=== PATIENT | male | born 1955 | race Caucasian/White ===

== ENCOUNTER 2017-06-18 14:54 | Emergency (ER) | payer MEDICARE, MEDICAID ==
[~2017-06-18] VITALS: Ht 175.3 cm; Wt 69.0 kg
[~2017-06-18 14:54] MED LIST: ALBU18HF2 IH; ALLO100T PO; AMIO200T57 PO; APIX2.5T PO; BUDE10.2 INH; CARV-50 PO; DIGO125T97 PO; DILT180C PO; DOCU100C40 PO; FAMO-1 PO; FURO-149 PO; HYDR-565 PO; MYCO500T PO; NITR0.4T51 SL; ONDA4TAB9 SL; POLY17PO10 PO; ROSU40TA PO; SODI650T29 PO; TAMS0.4C32 PO; UBID1CAP54 PO; VENL150C2 PO
[2017-06-18] MEDS ORDERED: HYDROcodone/acetaminophen 10/325mg tab PO ONE (15:40)
[2017-06-18 16:15] VITALS: BP 112/62
== END 2017-06-18 16:16 | disposition home or self-care (01) ==
LOC: ER 14:54
DX: R07.81 Pleurodynia (principal); I48.91 Unspecified atrial fibrillation; I25.10 Atherosclerotic heart disease of native coronary artery without angina pectoris; I25.2 Old myocardial infarction; J44.9 Chronic obstructive pulmonary disease, unspecified; I12.9 Hypertensive chronic kidney disease with stage 1 through stage 4 chronic kidney disease, or unspecified chronic kidney disease; N18.9 Chronic kidney disease, unspecified; Z95.1 Presence of aortocoronary bypass graft; Z79.899 Other long term (current) drug therapy; Z88.8 Allergy status to other drugs, medicaments and biological substances
CPT/HCPCS: 71046; 99284

== ENCOUNTER 2017-08-21 01:19 | Emergency (ER) | payer MEDICARE, MEDICAID ==
[~2017-08-21] VITALS: Ht 172.7 cm; Wt 56.0 kg
[2017-08-21] MEDS ORDERED: PSEU120T55 PO (02:04)
[2017-08-21] MEDS ORDERED: AZIT250T2 PO (02:04)
[2017-08-21 02:37] LABS: BASOPHILS % (AUTO) 0.2 % (0-1); EOSINOPHILS # (AUTO) 0.1 X10'3 (0-0.9); EOSINOPHILS % (AUTO) 1.8 % (0-6); HEMATOCRIT 36.2 % (42.0-52.0); HEMOGLOBIN 12.1 g/dl (14.0-17.9); LYMPHOCYTES # (AUTO) 0.7 X10'3 (1.1-4.8); LYMPHOCYTES % (AUTO) 13.7 % (21-51); MEAN CORPUSCULAR HEMOGLOBIN 34.3 PG (27.0-31.0); MEAN CORPUSCULAR HGB CONC 33.3 % (33.0-36.5); MEAN CORPUSCULAR VOLUME 103.2 FL (78-98); MEAN PLATELET VOLUME 7.5 FL (7.4-10.4); MONOCYTES # (AUTO) 0.9 X10'3 (0-0.9); MONOCYTES % (AUTO) 19.4 % (2-12); NEUTROPHILS # (AUTO) 3.1 X10'3 (1.8-7.7); NEUTROPHILS % (AUTO) 64.9 % (42-75); PLATELET COUNT 258 X10'3 (140-440); RED BLOOD COUNT 3.51 X10'6 (4.70-6.10); RED CELL DISTRIBUTION WIDTH 20.7 % (11.5-14.5); WHITE BLOOD COUNT 4.8 X10'3 (4.5-11.0)
[2017-08-21 02:52] LABS: ALANINE AMINOTRANSFERASE 20 U/L (12-78); ALBUMIN 3.5 G/DL (3.4-5.0); ALKALINE PHOSPHATASE 98 IU/L (46-116); ANION GAP 17 (8-16); ASPARTATE AMINO TRANSFERASE 18 U/L (10-37); BILIRUBIN,TOTAL 0.9 MG/DL (0.1-1.0); BLOOD UREA NITROGEN 66 MG/DL (7-18); BUN/CREATININE RATIO 8.7 (5.4-32.0); CALCIUM 8.5 MG/DL (8.5-10.1); CHLORIDE 98 MMOL/L (99-107); CREATININE 7.55 MG/DL (0.60-1.10); GLUCOSE 104 MG/DL (70-104); LIPASE < 50 U/L (73-393); MAGNESIUM 2.3 MG/DL (1.5-2.4); POTASSIUM 5.8 MMOL/L (3.5-5.1); SODIUM 137 MMOL/L (135-145); TOTAL CARBON DIOXIDE 22.2 MMOL/L (24-32); TOTAL PROTEIN 7.1 G/DL (6.4-8.2); eGFR 7 ML/MIN
[2017-08-21 03:29] LABS: NUCLEATED RED BLOOD CELLS 1 /100WBC (0-0); PLATELET ESTIMATE NORMAL; TOTAL CELLS COUNTED 100
[2017-08-21 03:30] LABS: ANISOCYTOSIS 3+; ELLIPTOCYTES 1+; POIKILOCYTOSIS FEW; POLYCHROMASIA 1+; TEAR DROP CELLS FEW
[2017-08-21 03:31] LABS: LARGE PLATELETS FEW
[2017-08-21 03:34] LABS: TOXIC VACUOLATION FEW
[2017-08-21 03:53] VITALS: BP 125/82
[2017-08-22] MEDS ORDERED: CALC667C5 (20:30)
== END 2017-08-21 04:28 | disposition home or self-care (01) ==
LOC: ER 01:19
DX: R10.9 Unspecified abdominal pain (principal); I12.0 Hypertensive chronic kidney disease with stage 5 chronic kidney disease or end stage renal disease; N18.6 End stage renal disease; Z99.2 Dependence on renal dialysis; I25.10 Atherosclerotic heart disease of native coronary artery without angina pectoris; I25.2 Old myocardial infarction; J44.1 Chronic obstructive pulmonary disease with (acute) exacerbation; I48.91 Unspecified atrial fibrillation; Z98.62 Peripheral vascular angioplasty status; Z90.49 Acquired absence of other specified parts of digestive tract; Z88.6 Allergy status to analgesic agent; Z88.8 Allergy status to other drugs, medicaments and biological substances; Z79.899 Other long term (current) drug therapy
CPT/HCPCS: 36415; 74176; 80053; 83690; 83735; 85025; 99285

== ENCOUNTER 2017-08-22 17:40 | Inpatient (IN) | payer MEDICARE, MEDICAID ==
[~2017-08-22] VITALS: Ht 172.7 cm; Wt 64.1 kg
[2017-08-22 18:22] LABS: BASOPHILS % (AUTO) 0.4 % (0-1); EOSINOPHILS # (AUTO) 0.1 X10'3 (0-0.9); EOSINOPHILS % (AUTO) 1.5 % (0-6); HEMATOCRIT 37.1 % (42.0-52.0); HEMOGLOBIN 12.3 g/dl (14.0-17.9); LYMPHOCYTES # (AUTO) 0.8 X10'3 (1.1-4.8); LYMPHOCYTES % (AUTO) 12.9 % (21-51); MEAN CORPUSCULAR HEMOGLOBIN 34.2 PG (27.0-31.0); MEAN CORPUSCULAR VOLUME 103.7 FL (78-98); MEAN PLATELET VOLUME 7.7 FL (7.4-10.4); MONOCYTES # (AUTO) 1.1 X10'3 (0-0.9); MONOCYTES % (AUTO) 17.8 % (2-12); NEUTROPHILS # (AUTO) 4.1 X10'3 (1.8-7.7); NEUTROPHILS % (AUTO) 67.4 % (42-75); PLATELET COUNT 273 X10'3 (140-440); RED BLOOD COUNT 3.58 X10'6 (4.70-6.10); RED CELL DISTRIBUTION WIDTH 21.1 % (11.5-14.5); WHITE BLOOD COUNT 6.1 X10'3 (4.5-11.0)
[2017-08-22 18:32] LABS: INR 1.2 INR; PROTHROMBIN TIME 12.5 SECONDS (9.0-12.0)
[2017-08-22 18:37] LABS: ALANINE AMINOTRANSFERASE 24 U/L (12-78); ALBUMIN 3.4 G/DL (3.4-5.0); ALBUMIN/GLOBULIN RATIO 0.9 (1.1-1.5); ALKALINE PHOSPHATASE 97 IU/L (46-116); AMYLASE 44 U/L (25-115); ANION GAP 12 (8-16); ASPARTATE AMINO TRANSFERASE 18 U/L (10-37); BILIRUBIN,TOTAL 0.7 MG/DL (0.1-1.0); BLOOD UREA NITROGEN 21 MG/DL (7-18); BUN/CREATININE RATIO 6.1 (5.4-32.0); CALCIUM 8.7 MG/DL (8.5-10.1); CHLORIDE 99 MMOL/L (99-107); CREATININE 3.44 MG/DL (0.60-1.10); GLUCOSE 138 MG/DL (70-104); LIPASE 112 U/L (73-393); POTASSIUM 3.5 MMOL/L (3.5-5.1); SODIUM 142 MMOL/L (135-145); TOTAL CARBON DIOXIDE 31.2 MMOL/L (24-32); eGFR 18 ML/MIN
[2017-08-22] MEDS ORDERED: ondansetron/PF 4mg/2ml inj IV ONE ×2 (20:20→22:45)
[2017-08-22] MEDS ORDERED: CALC667C5 (20:30)
[2017-08-22] MEDS ORDERED: morphine 4 MG/ML inj SYRINge IV ONE ×2 (20:50→22:45)
[2017-08-22] MEDS ORDERED: diphenhydrAMINE 50 mg/ml inj IV PRN (21:20)
[2017-08-22] MEDS ORDERED: acetaminophen 325mg tablet PO PRN (21:20)
[2017-08-22] MEDS ORDERED: non-formulary drug (Budesonide/Formoterol Fumarate (Symbicort 160-4.5 Mcg Inhaler) 2 PUFFS INH PRN (21:30)
[2017-08-22] MEDS ORDERED: non-formulary drug (Albuterol Sulfate (Ventolin Hfa) 2 PUFFS) IH PRN (21:30)
[2017-08-22] MEDS ORDERED: nitroGLYCERIN 0.4mg SUBLingual tab SL PRN (21:30)
[2017-08-23] MEDS: ondansetron/PF 4mg/2ml inj IV PRN ×2 (03:26→18:35)
[2017-08-23] MEDS: HYDROmorphone inj. 0.5 MG/0.5 ML DISP.SYRIN IV PRN ×2 (03:26→18:34)
[2017-08-23] MEDS ORDERED: epoetin 20,000 units/ml inj IV ONE (06:40)
[2017-08-23] MEDS ORDERED: heparin 1,000 units/ml 10ml inj IV ONE (06:40)
[2017-08-23] MEDS ORDERED: LIDOcaine 1% (10mg/ml) 2ml vial SQ ONE (06:40)
[2017-08-23] MEDS ORDERED: heparin 1,000unit/ml 10ml vial 10 ML IV ONE (06:40)
[2017-08-23] MEDS ORDERED: normal saline 1000ml 250 ML IV PRN (06:40)
[2017-08-23] MEDS ORDERED: heparin 1,000 units/ml 10ml inj HE ONE ×2 (06:45)
[2017-08-23 07:09] LABS: BASOPHILS % (AUTO) 0.3 % (0-1); EOSINOPHILS # (AUTO) 0.2 X10'3 (0-0.9); EOSINOPHILS % (AUTO) 3.2 % (0-6); HEMATOCRIT 35.6 % (42.0-52.0); HEMOGLOBIN 11.6 g/dl (14.0-17.9); LYMPHOCYTES # (AUTO) 0.5 X10'3 (1.1-4.8); LYMPHOCYTES % (AUTO) 7.8 % (21-51); MEAN CORPUSCULAR HGB CONC 32.5 % (33.0-36.5); MEAN CORPUSCULAR VOLUME 104.5 FL (78-98); MEAN PLATELET VOLUME 7.7 FL (7.4-10.4); MONOCYTES % (AUTO) 14.6 % (2-12); NEUTROPHILS % (AUTO) 74.1 % (42-75); PLATELET COUNT 212 X10'3 (140-440); RED BLOOD COUNT 3.41 X10'6 (4.70-6.10); RED CELL DISTRIBUTION WIDTH 21.2 % (11.5-14.5); WHITE BLOOD COUNT 6.8 X10'3 (4.5-11.0)
[2017-08-23 07:32] LABS: ALANINE AMINOTRANSFERASE 24 U/L (12-78); ALBUMIN/GLOBULIN RATIO 0.9 (1.1-1.5); ALKALINE PHOSPHATASE 87 IU/L (46-116); ANION GAP 13 (8-16); ASPARTATE AMINO TRANSFERASE 17 U/L (10-37); BILIRUBIN,TOTAL 0.6 MG/DL (0.1-1.0); BLOOD UREA NITROGEN 29 MG/DL (7-18); BUN/CREATININE RATIO 6.7 (5.4-32.0); CALCIUM 8.3 MG/DL (8.5-10.1); CHLORIDE 101 MMOL/L (99-107); CREATININE 4.36 MG/DL (0.60-1.10); GLUCOSE 85 MG/DL (70-104); SODIUM 143 MMOL/L (135-145); TOTAL CARBON DIOXIDE 29.5 MMOL/L (24-32); TOTAL PROTEIN 6.2 G/DL (6.4-8.2); eGFR 14 ML/MIN
[2017-08-23 07:35] LABS: POTASSIUM 3.7 MMOL/L (3.5-5.1)
[2017-08-23] MEDS: heparin, porcine 5000 units/ml vial SQ SCH ×2 (07:59→20:35)
[2017-08-23] MEDS: fluticasone/vilanterol 200mcg/25mcg inhaler IH SCH (08:00)
[2017-08-23] MEDS: morphine 4 MG/ML inj SYRINge IV PRN ×3 (08:00→20:34)
[2017-08-23] MEDS ORDERED: SODI15OR6 (09:20)
[2017-08-23] MEDS ORDERED: MEGE20TA (09:26)
[2017-08-23] MEDS: albuterol 2.5 MG/3 ML nebule NEB PRN ×2 (13:54→22:04)
[2017-08-23 19:00] VITALS: BP 142/81
[2017-08-23] MEDS: temazepam 15mg capsule PO PRN (22:23)
[2017-08-24] MEDS: HYDROmorphone inj. 0.5 MG/0.5 ML DISP.SYRIN IV PRN ×5 (01:45→21:27)
[2017-08-24] MEDS: morphine 4 MG/ML inj SYRINge IV PRN (04:29)
[2017-08-24 05:34] LABS: BASOPHILS % (AUTO) 0.3 % (0-1); EOSINOPHILS # (AUTO) 0.2 X10'3 (0-0.9); EOSINOPHILS % (AUTO) 2.8 % (0-6); HEMATOCRIT 38.6 % (42.0-52.0); HEMOGLOBIN 12.6 g/dl (14.0-17.9); LYMPHOCYTES # (AUTO) 0.9 X10'3 (1.1-4.8); LYMPHOCYTES % (AUTO) 12.3 % (21-51); MEAN CORPUSCULAR HEMOGLOBIN 34.2 PG (27.0-31.0); MEAN CORPUSCULAR HGB CONC 32.6 % (33.0-36.5); MEAN CORPUSCULAR VOLUME 104.6 FL (78-98); MONOCYTES % (AUTO) 13.5 % (2-12); NEUTROPHILS # (AUTO) 5.2 X10'3 (1.8-7.7); NEUTROPHILS % (AUTO) 71.1 % (42-75); PLATELET COUNT 242 X10'3 (140-440); RED BLOOD COUNT 3.69 X10'6 (4.70-6.10); RED CELL DISTRIBUTION WIDTH 20.2 % (11.5-14.5); WHITE BLOOD COUNT 7.4 X10'3 (4.5-11.0)
[2017-08-24 05:49] LABS: ALANINE AMINOTRANSFERASE 20 U/L (12-78); ALBUMIN 3.2 G/DL (3.4-5.0); ALBUMIN/GLOBULIN RATIO 0.9 (1.1-1.5); ALKALINE PHOSPHATASE 92 IU/L (46-116); ANION GAP 13 (8-16); ASPARTATE AMINO TRANSFERASE 16 U/L (10-37); BILIRUBIN,TOTAL 0.7 MG/DL (0.1-1.0); BLOOD UREA NITROGEN 37 MG/DL (7-18); BUN/CREATININE RATIO 6.4 (5.4-32.0); CALCIUM 8.9 MG/DL (8.5-10.1); CHLORIDE 101 MMOL/L (99-107); CREATININE 5.82 MG/DL (0.60-1.10); GLUCOSE 75 MG/DL (70-104); POTASSIUM 3.6 MMOL/L (3.5-5.1); SODIUM 144 MMOL/L (135-145); TOTAL CARBON DIOXIDE 29.6 MMOL/L (24-32); TOTAL PROTEIN 6.7 G/DL (6.4-8.2); eGFR 10 ML/MIN
[2017-08-24 07:06] LABS: ANISOCYTOSIS 2+; PLATELET ESTIMATE NORMAL
[2017-08-24 07:07] LABS: POIKILOCYTOSIS FEW; POLYCHROMASIA 1+
[2017-08-24 07:15] VITALS: BP 156/92
[2017-08-24] MEDS: heparin, porcine 5000 units/ml vial SQ SCH ×2 (08:57→20:00)
[2017-08-24] MEDS: albuterol 2.5 MG/3 ML nebule NEB PRN ×2 (10:20→18:49)
[2017-08-24] MEDS: fluticasone/vilanterol 200mcg/25mcg inhaler IH SCH (10:22)
[2017-08-24 11:24] VITALS: BP 152/86
[2017-08-24 19:00] VITALS: BP 128/76
[2017-08-24 19:10] VITALS: BP 153/85
[2017-08-24] MEDS ORDERED: LORazepam 2 mg/ml vial IV ONE (20:15)
[2017-08-24] MEDS: temazepam 15mg capsule PO PRN (22:52)
[2017-08-25] MEDS: HYDROmorphone inj. 0.5 MG/0.5 ML DISP.SYRIN IV PRN ×4 (03:37→19:00)
[2017-08-25 05:05] LABS: BASOPHILS % (AUTO) 0.2 % (0-1); EOSINOPHILS # (AUTO) 0.1 X10'3 (0-0.9); EOSINOPHILS % (AUTO) 2.1 % (0-6); HEMATOCRIT 32.5 % (42.0-52.0); HEMOGLOBIN 10.8 g/dl (14.0-17.9); LYMPHOCYTES # (AUTO) 0.8 X10'3 (1.1-4.8); MEAN CORPUSCULAR HEMOGLOBIN 34.4 PG (27.0-31.0); MEAN CORPUSCULAR VOLUME 104.2 FL (78-98); MEAN PLATELET VOLUME 7.8 FL (7.4-10.4); MONOCYTES # (AUTO) 0.8 X10'3 (0-0.9); MONOCYTES % (AUTO) 12.7 % (2-12); NEUTROPHILS # (AUTO) 4.7 X10'3 (1.8-7.7); PLATELET COUNT 226 X10'3 (140-440); RED BLOOD COUNT 3.12 X10'6 (4.70-6.10); RED CELL DISTRIBUTION WIDTH 20.6 % (11.5-14.5); WHITE BLOOD COUNT 6.5 X10'3 (4.5-11.0)
[2017-08-25 05:32] LABS: ALANINE AMINOTRANSFERASE 12 U/L (12-78); ALBUMIN/GLOBULIN RATIO 0.9 (1.1-1.5); ALKALINE PHOSPHATASE 80 IU/L (46-116); ANION GAP 13 (8-16); ASPARTATE AMINO TRANSFERASE 11 U/L (10-37); BILIRUBIN,TOTAL 0.7 MG/DL (0.1-1.0); BLOOD UREA NITROGEN 42 MG/DL (7-18); BUN/CREATININE RATIO 6.2 (5.4-32.0); CALCIUM 8.6 MG/DL (8.5-10.1); CHLORIDE 98 MMOL/L (99-107); GLUCOSE 92 MG/DL (70-104); POTASSIUM 3.9 MMOL/L (3.5-5.1); SODIUM 141 MMOL/L (135-145); TOTAL PROTEIN 6.2 G/DL (6.4-8.2); eGFR 8 ML/MIN
[2017-08-25 07:32] VITALS: BP 135/81
[2017-08-25] MEDS: fluticasone/vilanterol 200mcg/25mcg inhaler IH SCH (08:00)
[2017-08-25] MEDS ORDERED: heparin 1,000unit/ml 10ml vial 10 ML IV ONE (08:35)
[2017-08-25] MEDS ORDERED: epoetin 20,000 units/ml inj IV ONE (08:35)
[2017-08-25] MEDS ORDERED: heparin 1,000 units/ml 10ml inj IV ONE (08:35)
[2017-08-25] MEDS ORDERED: heparin 1,000 units/ml 10ml inj HE ONE ×2 (08:35→08:40)
[2017-08-25] MEDS: heparin, porcine 5000 units/ml vial SQ SCH ×2 (10:36→20:11)
[2017-08-25 11:25] VITALS: BP 135/81
[2017-08-25] MEDS ORDERED: digoxin 125mcg (0.125mg) tablet PO SCH (17:25)
[2017-08-25 18:50] VITALS: BP 118/82
[2017-08-25] MEDS: albuterol 2.5 MG/3 ML nebule NEB PRN (18:59)
[2017-08-25] MEDS: carVEDilol 12.5mg tablet PO SCH (20:06)
[2017-08-25] MEDS: apixaban 2.5mg tablet PO SCH (20:06)
[2017-08-25] MEDS: amiodarone 200mg tablet PO SCH (20:06)
[2017-08-25] MEDS: sodium bicarbonate 650mg tablet PO SCH (20:07)
[2017-08-25] MEDS ORDERED: calcium acetate 667mg (PhosLO) capsule PO SCH (21:00)
[2017-08-25] MEDS: temazepam 15mg capsule PO PRN ×2 (21:03→23:25)
[2017-08-25] MEDS: HYDROcodone/acetaminophen 10/325mg tab PO PRN (23:26)
[2017-08-26] VITALS: BP 88/57
[2017-08-26 06:00] LABS: BASOPHILS % (AUTO) 0.4 % (0-1); EOSINOPHILS # (AUTO) 0.2 X10'3 (0-0.9); EOSINOPHILS % (AUTO) 3.6 % (0-6); HEMATOCRIT 31.9 % (42.0-52.0); HEMOGLOBIN 10.6 g/dl (14.0-17.9); LYMPHOCYTES # (AUTO) 1.1 X10'3 (1.1-4.8); LYMPHOCYTES % (AUTO) 18.9 % (21-51); MEAN CORPUSCULAR HEMOGLOBIN 34.7 PG (27.0-31.0); MEAN CORPUSCULAR HGB CONC 33.1 % (33.0-36.5); MEAN CORPUSCULAR VOLUME 104.9 FL (78-98); MEAN PLATELET VOLUME 8.1 FL (7.4-10.4); MONOCYTES # (AUTO) 0.8 X10'3 (0-0.9); MONOCYTES % (AUTO) 14.2 % (2-12); NEUTROPHILS # (AUTO) 3.6 X10'3 (1.8-7.7); NEUTROPHILS % (AUTO) 62.9 % (42-75); PLATELET COUNT 193 X10'3 (140-440); RED BLOOD COUNT 3.04 X10'6 (4.70-6.10); RED CELL DISTRIBUTION WIDTH 20.2 % (11.5-14.5); WHITE BLOOD COUNT 5.7 X10'3 (4.5-11.0)
[2017-08-26 06:18] LABS: ALANINE AMINOTRANSFERASE 15 U/L (12-78); ALBUMIN 2.7 G/DL (3.4-5.0); ALKALINE PHOSPHATASE 75 IU/L (46-116); ANION GAP 10 (8-16); ASPARTATE AMINO TRANSFERASE 13 U/L (10-37); BILIRUBIN,TOTAL 0.8 MG/DL (0.1-1.0); BLOOD UREA NITROGEN 28 MG/DL (7-18); BUN/CREATININE RATIO 5.8 (5.4-32.0); CALCIUM 8.2 MG/DL (8.5-10.1); CHLORIDE 97 MMOL/L (99-107); CREATININE 4.84 MG/DL (0.60-1.10); GLUCOSE 85 MG/DL (70-104); POTASSIUM 3.2 MMOL/L (3.5-5.1); SODIUM 136 MMOL/L (135-145); TOTAL CARBON DIOXIDE 28.6 MMOL/L (24-32); TOTAL PROTEIN 5.5 G/DL (6.4-8.2); eGFR 12 ML/MIN
[2017-08-26 07:22] VITALS: BP 79/49
[2017-08-26] MEDS ORDERED: albumin (Human) 5% 250 ML IV solution IV STA (07:35)
[2017-08-26] MEDS: fluticasone/vilanterol 200mcg/25mcg inhaler IH SCH (07:48)
[2017-08-26] MEDS: apixaban 2.5mg tablet PO SCH ×2 (07:50→20:07)
[2017-08-26] MEDS: calcium acetate 667mg (PhosLO) capsule PO SCH ×3 (07:50→17:30)
[2017-08-26] MEDS: allopurinol 100mg tablet PO SCH (07:50)
[2017-08-26] MEDS: heparin, porcine 5000 units/ml vial SQ SCH ×2 (07:51→20:08)
[2017-08-26] MEDS: tamsulosin 0.4mg capsule PO SCH (07:51)
[2017-08-26] MEDS: famotidine 20mg tablet PO SCH (07:52)
[2017-08-26] MEDS: sodium bicarbonate 650mg tablet PO SCH ×2 (07:52→20:07)
[2017-08-26] MEDS: venlafaxine XR 75mg capsule (Q24H) PO SCH (07:57)
[2017-08-26] MEDS: amiodarone 200mg tablet PO SCH ×3 (08:00→20:07)
[2017-08-26] MEDS: carVEDilol 12.5mg tablet PO SCH ×3 (08:00→20:07)
[2017-08-26] MEDS: diltiazem CD 180mg cap (once-daily) PO SCH (08:00)
[2017-08-26] MEDS ORDERED: atorvastatin 20mg tablet PO SCH (08:00)
[2017-08-26 08:41] LABS: PLATELET ESTIMATE NORMAL
[2017-08-26 08:43] LABS: ANISOCYTOSIS 2+; LARGE PLATELETS FEW
[2017-08-26 08:44] LABS: MICROCYTOSIS 1+
[2017-08-26 08:45] LABS: SCHISTOCYTES FEW
[2017-08-26 08:46] LABS: TARGET CELLS FEW
[2017-08-26 08:47] LABS: POLYCHROMASIA FEW
[2017-08-26] MEDS: HYDROmorphone inj. 0.5 MG/0.5 ML DISP.SYRIN IV PRN ×3 (10:12→20:09)
[2017-08-26 11:00] VITALS: BP 107/72
[2017-08-26] MEDS: docusate sod 100mg capsule PO PRN (13:24)
[2017-08-26] MEDS ORDERED: bisacodyl 5mg tablet.DR PO PRN (15:00)
[2017-08-26] MEDS ORDERED: polyethylene glycol 3350 17gm powd pack PO ONE (17:25)
[2017-08-26 18:50] VITALS: BP 118/81
[2017-08-26] MEDS: polyethylene glycol 3350 17gm powd pack PO SCH (20:08)
[2017-08-26] MEDS: atorvastatin 20mg tablet PO SCH (20:08)
[2017-08-26] MEDS: temazepam 15mg capsule PO PRN ×2 (20:08→21:50)
[2017-08-26] MEDS: HYDROcodone/acetaminophen 10/325mg tab PO PRN (23:51)
[2017-08-27 05:37] VITALS: BP 106/66
[2017-08-27 05:58] LABS: BASOPHILS % (AUTO) 0.6 % (0-1); EOSINOPHILS # (AUTO) 0.1 X10'3 (0-0.9); EOSINOPHILS % (AUTO) 2.9 % (0-6); HEMATOCRIT 32.8 % (42.0-52.0); LYMPHOCYTES # (AUTO) 0.8 X10'3 (1.1-4.8); LYMPHOCYTES % (AUTO) 15.6 % (21-51); MEAN CORPUSCULAR HEMOGLOBIN 34.1 PG (27.0-31.0); MEAN CORPUSCULAR HGB CONC 33.4 % (33.0-36.5); MEAN CORPUSCULAR VOLUME 102.1 FL (78-98); MEAN PLATELET VOLUME 8.1 FL (7.4-10.4); MONOCYTES # (AUTO) 0.6 X10'3 (0-0.9); MONOCYTES % (AUTO) 11.7 % (2-12); NEUTROPHILS # (AUTO) 3.6 X10'3 (1.8-7.7); NEUTROPHILS % (AUTO) 69.2 % (42-75); PLATELET COUNT 202 X10'3 (140-440); RED BLOOD COUNT 3.22 X10'6 (4.70-6.10); RED CELL DISTRIBUTION WIDTH 20.4 % (11.5-14.5); WHITE BLOOD COUNT 5.2 X10'3 (4.5-11.0)
[2017-08-27 06:20] LABS: ALANINE AMINOTRANSFERASE 12 U/L (12-78); ALBUMIN 2.8 G/DL (3.4-5.0); ALKALINE PHOSPHATASE 77 IU/L (46-116); ANION GAP 11 (8-16); ASPARTATE AMINO TRANSFERASE 11 U/L (10-37); BILIRUBIN,TOTAL 0.7 MG/DL (0.1-1.0); BLOOD UREA NITROGEN 32 MG/DL (7-18); BUN/CREATININE RATIO 5.4 (5.4-32.0); CALCIUM 8.7 MG/DL (8.5-10.1); CHLORIDE 97 MMOL/L (99-107); CREATININE 5.93 MG/DL (0.60-1.10); GLUCOSE 86 MG/DL (70-104); POTASSIUM 3.4 MMOL/L (3.5-5.1); SODIUM 135 MMOL/L (135-145); TOTAL CARBON DIOXIDE 27.1 MMOL/L (24-32); TOTAL PROTEIN 5.5 G/DL (6.4-8.2); eGFR 10 ML/MIN
[2017-08-27 07:43] VITALS: BP 96/63
[2017-08-27] MEDS: famotidine 20mg tablet PO SCH (07:49)
[2017-08-27] MEDS: calcium acetate 667mg (PhosLO) capsule PO SCH ×3 (07:49→20:31)
[2017-08-27] MEDS: sodium bicarbonate 650mg tablet PO SCH ×2 (07:49→20:32)
[2017-08-27] MEDS: tamsulosin 0.4mg capsule PO SCH (07:49)
[2017-08-27] MEDS: apixaban 2.5mg tablet PO SCH ×2 (07:49→20:31)
[2017-08-27] MEDS: heparin, porcine 5000 units/ml vial SQ SCH ×2 (07:50→20:00)
[2017-08-27] MEDS: HYDROmorphone inj. 0.5 MG/0.5 ML DISP.SYRIN IV PRN ×3 (07:51→17:17)
[2017-08-27] MEDS: allopurinol 100mg tablet PO SCH (07:53)
[2017-08-27] MEDS: venlafaxine XR 75mg capsule (Q24H) PO SCH (07:56)
[2017-08-27] MEDS ORDERED: albumin (human) 25% 100ml IV 100 ML IV PRN (08:00)
[2017-08-27] MEDS: amiodarone 200mg tablet PO SCH (08:00)
[2017-08-27] MEDS: diltiazem CD 180mg cap (once-daily) PO SCH (08:00)
[2017-08-27] MEDS ORDERED: epoetin 20,000 units/ml inj IV ONE (08:00)
[2017-08-27] MEDS: carVEDilol 12.5mg tablet PO SCH (08:00)
[2017-08-27] MEDS: fluticasone/vilanterol 200mcg/25mcg inhaler IH SCH (08:38)
[2017-08-27] MEDS: albuterol 2.5 MG/3 ML nebule NEB PRN ×2 (08:39→20:30)
[2017-08-27] MEDS ORDERED: heparin 1,000unit/ml 10ml vial 10 ML IV ONE (09:21)
[2017-08-27] MEDS ORDERED: heparin 1,000 units/ml 10ml inj HE ONE ×2 (09:25)
[2017-08-27 11:00] VITALS: BP 93/60
[2017-08-27] MEDS: docusate sod 100mg capsule PO PRN (13:20)
[2017-08-27] MEDS: polyethylene glycol 3350 17gm powd pack PO SCH ×2 (13:25→20:31)
[2017-08-27 20:00] VITALS: BP 107/64
[2017-08-27] MEDS: carVEDilol 3.125mg tablet PO SCH (20:31)
[2017-08-27] MEDS: atorvastatin 20mg tablet PO SCH (20:31)
[2017-08-27] MEDS: temazepam 15mg capsule PO PRN (21:30)
[2017-08-27] MEDS: morphine 4 MG/ML inj SYRINge IV PRN (21:31)
[2017-08-28] VITALS: BP 98/60
[2017-08-28 05:52] LABS: BASOPHILS % (AUTO) 0.3 % (0-1); EOSINOPHILS # (AUTO) 0.2 X10'3 (0-0.9); EOSINOPHILS % (AUTO) 2.5 % (0-6); HEMATOCRIT 33.4 % (42.0-52.0); HEMOGLOBIN 11.1 g/dl (14.0-17.9); LYMPHOCYTES # (AUTO) 0.9 X10'3 (1.1-4.8); LYMPHOCYTES % (AUTO) 10.1 % (21-51); MEAN CORPUSCULAR HEMOGLOBIN 34.1 PG (27.0-31.0); MEAN CORPUSCULAR HGB CONC 33.2 % (33.0-36.5); MEAN CORPUSCULAR VOLUME 102.7 FL (78-98); MEAN PLATELET VOLUME 8.4 FL (7.4-10.4); MONOCYTES # (AUTO) 0.7 X10'3 (0-0.9); MONOCYTES % (AUTO) 8.3 % (2-12); NEUTROPHILS # (AUTO) 6.8 X10'3 (1.8-7.7); NEUTROPHILS % (AUTO) 78.8 % (42-75); PLATELET COUNT 214 X10'3 (140-440); RED BLOOD COUNT 3.25 X10'6 (4.70-6.10); RED CELL DISTRIBUTION WIDTH 19.8 % (11.5-14.5); WHITE BLOOD COUNT 8.6 X10'3 (4.5-11.0)
[2017-08-28 06:06] LABS: ALANINE AMINOTRANSFERASE 17 U/L (12-78); ALBUMIN 2.9 G/DL (3.4-5.0); ALKALINE PHOSPHATASE 87 IU/L (46-116); ANION GAP 10 (8-16); ASPARTATE AMINO TRANSFERASE 12 U/L (10-37); BLOOD UREA NITROGEN 18 MG/DL (7-18); BUN/CREATININE RATIO 4.4 (5.4-32.0); CALCIUM 8.7 MG/DL (8.5-10.1); CHLORIDE 100 MMOL/L (99-107); CREATININE 4.05 MG/DL (0.60-1.10); GLUCOSE 75 MG/DL (70-104); POTASSIUM 3.8 MMOL/L (3.5-5.1); SODIUM 138 MMOL/L (135-145); TOTAL CARBON DIOXIDE 27.6 MMOL/L (24-32); TOTAL PROTEIN 5.8 G/DL (6.4-8.2); eGFR 15 ML/MIN
[2017-08-28] MEDS ORDERED: amiodarone 200mg tablet PO SCH (08:00)
[2017-08-28 08:08] VITALS: BP 100/63
[2017-08-28 08:12] VITALS: BP 142/83
[2017-08-28] MEDS: albuterol 2.5 MG/3 ML nebule NEB PRN (08:39)
[2017-08-28] MEDS: fluticasone/vilanterol 200mcg/25mcg inhaler IH SCH (08:39)
[2017-08-28] MEDS: carVEDilol 3.125mg tablet PO SCH (09:03)
[2017-08-28] MEDS: venlafaxine XR 75mg capsule (Q24H) PO SCH (09:04)
[2017-08-28] MEDS: apixaban 2.5mg tablet PO SCH (09:04)
[2017-08-28] MEDS: tamsulosin 0.4mg capsule PO SCH (09:05)
[2017-08-28] MEDS: famotidine 20mg tablet PO SCH (09:06)
[2017-08-28] MEDS: sodium bicarbonate 650mg tablet PO SCH (09:07)
[2017-08-28] MEDS: calcium acetate 667mg (PhosLO) capsule PO SCH ×2 (09:07→12:41)
[2017-08-28] MEDS: allopurinol 100mg tablet PO SCH (09:07)
[2017-08-28] MEDS ORDERED: DILT120C62 PO (09:28)
[2017-08-28] MEDS: morphine 4 MG/ML inj SYRINge IV PRN (09:29)
[2017-08-28 11:13] VITALS: BP 106/71
== END 2017-08-28 13:19 | disposition home or self-care (01) | DRG 388 ==
LOC: ER 17:40 → ED HOLD 21:18 → SUR 3N 08-23 18:50
PROVIDERS: ATTEND Internal Medicine Critical Care Medicine
PROC: 5A1D70Z Performance of Urinary Filtration, Intermittent, Less than 6 Hours Per Day (ICD-10-PCS; principal; 2017-08-27)
PROC: 5A1D70Z Performance of Urinary Filtration, Intermittent, Less than 6 Hours Per Day (ICD-10-PCS; 2017-08-27)
DX: K56.50 Intestinal adhesions [bands], unspecified as to partial versus complete obstruction (principal); N18.6 End stage renal disease; E46 Unspecified protein-calorie malnutrition; I12.0 Hypertensive chronic kidney disease with stage 5 chronic kidney disease or end stage renal disease; I48.91 Unspecified atrial fibrillation; F32.9 Major depressive disorder, single episode, unspecified; F12.90 Cannabis use, unspecified, uncomplicated; I25.10 Atherosclerotic heart disease of native coronary artery without angina pectoris; J44.9 Chronic obstructive pulmonary disease, unspecified; I25.2 Old myocardial infarction; Z93.3 Colostomy status; Z99.2 Dependence on renal dialysis; Z88.8 Allergy status to other drugs, medicaments and biological substances; Z79.01 Long term (current) use of anticoagulants; Z79.51 Long term (current) use of inhaled steroids; Z79.899 Other long term (current) drug therapy; Z85.038 Personal history of other malignant neoplasm of large intestine; Z87.891 Personal history of nicotine dependence; Z68.21 Body mass index [BMI] 21.0-21.9, adult
CPT/HCPCS: 36415; 74176; 80053; 80162; 82150; 83605; 83690; 85025; 85610; 87040; 87070; 87324; 87449; 94640; 94760; 96374; 96375; 99285; A6257; G0257; J0885; J1170; J1644; J2060; J2270; J2405; J7030; P9045

== ENCOUNTER 2017-09-11 17:24 | Inpatient (IN) | payer MEDICARE, MEDICAID ==
[~2017-09-11] VITALS: Ht 172.7 cm; Wt 75.0 kg
[~2017-09-11 17:24] MED LIST changes: +CALC667C5; -DIGO125T97 PO; +DILT120C62 PO; -DILT180C PO; -FURO-149 PO; +MEGE20TA; -MYCO500T PO; -UBID1CAP54 PO
[2017-09-11 19:00] VITALS: BP 108/72
[2017-09-11] MEDS ORDERED: morphine 5 MG/ML injection IV ONE (19:55)
[2017-09-11] MEDS ORDERED: morphine 4 MG/ML inj SYRINge IV ONE ×2 (20:00→21:50)
[2017-09-11] MEDS ORDERED: ondansetron 4mg rapidly disintigrating tab PO ONE (20:10)
[2017-09-11] MEDS ORDERED: pantoprazole 40 MG vial IV ONE (20:40)
[2017-09-11] MEDS ORDERED: normal saline 1000ml 1,000 ML IV ONE (20:45)
[2017-09-11 20:46] LABS: BASOPHILS % (AUTO) 0.3 % (0-1); EOSINOPHILS # (AUTO) 0.1 X10'3 (0-0.9); EOSINOPHILS % (AUTO) 1.3 % (0-6); HEMATOCRIT 34.1 % (42.0-52.0); HEMOGLOBIN 11.3 g/dl (14.0-17.9); LYMPHOCYTES # (AUTO) 0.6 X10'3 (1.1-4.8); MEAN CORPUSCULAR HEMOGLOBIN 34.2 PG (27.0-31.0); MEAN CORPUSCULAR HGB CONC 33.1 % (33.0-36.5); MEAN CORPUSCULAR VOLUME 103.2 FL (78-98); MEAN PLATELET VOLUME 7.9 FL (7.4-10.4); MONOCYTES # (AUTO) 0.9 X10'3 (0-0.9); MONOCYTES % (AUTO) 8.8 % (2-12); NEUTROPHILS # (AUTO) 8.6 X10'3 (1.8-7.7); NEUTROPHILS % (AUTO) 83.6 % (42-75); PLATELET COUNT 220 X10'3 (140-440); RED BLOOD COUNT 3.31 X10'6 (4.70-6.10); RED CELL DISTRIBUTION WIDTH 18.4 % (11.5-14.5); WHITE BLOOD COUNT 10.3 X10'3 (4.5-11.0)
[2017-09-11] MEDS ORDERED: fentaNYL/PF 50MCG/1 ML 2ML syringe IV ONE (20:50)
[2017-09-11] MEDS ORDERED: ondansetron/PF 4mg/2ml inj IV ONE (20:50)
[2017-09-11] MEDS ORDERED: proCHLORperazine 10 MG/2 ml inj IV ONE (20:55)
[2017-09-11 20:56] LABS: INR 1.2 INR; PARTIAL THROMBOPLASTIN TIME 30 SECONDS (22-32); PROTHROMBIN TIME 12.3 SECONDS (9.0-12.0)
[2017-09-11 21:00] LABS: ALANINE AMINOTRANSFERASE 22 U/L (12-78); ALBUMIN 3.3 G/DL (3.4-5.0); ALKALINE PHOSPHATASE 120 IU/L (46-116); ANION GAP 12 (8-16); ASPARTATE AMINO TRANSFERASE 21 U/L (10-37); BILIRUBIN,TOTAL 0.6 MG/DL (0.1-1.0); BLOOD UREA NITROGEN 38 MG/DL (7-18); BUN/CREATININE RATIO 7.2 (5.4-32.0); CALCIUM 9.2 MG/DL (8.5-10.1); CHLORIDE 97 MMOL/L (99-107); CREATININE 5.28 MG/DL (0.60-1.10); GLUCOSE 102 MG/DL (70-104); POTASSIUM 3.6 MMOL/L (3.5-5.1); SODIUM 138 MMOL/L (135-145); TOTAL CARBON DIOXIDE 29.5 MMOL/L (24-32); TOTAL PROTEIN 6.7 G/DL (6.4-8.2); eGFR 11 ML/MIN
[2017-09-11] MEDS ORDERED: pantoprazole 40MG/NS 100ML BAG 100 ML IV ONE (21:50)
[2017-09-11] MEDS ORDERED: non-formulary drug (Budesonide/Formoterol Fumarate (Symbicort 160-4.5 Mcg Inhaler) 2 PUFFS INH PRN (22:15)
[2017-09-11] MEDS ORDERED: nitroGLYCERIN 0.4mg SUBLingual tab SL PRN (22:15)
[2017-09-11] MEDS ORDERED: non-formulary drug (Albuterol Sulfate (Ventolin Hfa) 2 PUFFS) IH PRN (22:15)
[2017-09-11 23:00] VITALS: BP 158/115
[2017-09-11] MEDS ORDERED: HYDROmorphone inj. 0.5 MG/0.5 ML DISP.SYRIN IV PRN (23:45)
[2017-09-11] MEDS ORDERED: proCHLORperazine 10 MG/2 ml inj IV PRN (23:50)
[2017-09-12 03:00] VITALS: BP 108/72
[2017-09-12 06:00] VITALS: BP 118/67
[2017-09-12] MEDS: pantoprazole 40MG/NS 100ML BAG 100 ML IV SCH ×4 (06:04→20:49)
[2017-09-12] MEDS ORDERED: pantoprazole 40 MG vial IV SCH (08:00)
[2017-09-12] MEDS: albuterol 2.5 MG/3 ML nebule NEB PRN (10:44)
[2017-09-12] MEDS: fluticasone/vilanterol 200mcg/25mcg inhaler IH SCH (10:44)
[2017-09-12 11:00] VITALS: BP 116/84
[2017-09-12] MEDS ORDERED: docusate sod 100mg capsule PO PRN (11:10)
[2017-09-12] MEDS ORDERED: ondansetron 4mg rapidly disintigrating tab PO PRN (11:10)
[2017-09-12] MEDS ORDERED: polyethylene glycol 3350 17gm powd pack PO PRN (11:10)
[2017-09-12] MEDS ORDERED: normal saline 1000ml 250 ML IV PRN (11:22)
[2017-09-12] MEDS ORDERED: normal saline 1000ml 100 ML IV PRN (11:22)
[2017-09-12] MEDS ORDERED: heparin 1,000 units/ml 10ml inj HE ONE ×2 (11:30)
[2017-09-12] MEDS: morphine 4 MG/ML inj SYRINge IV PRN ×3 (12:29→21:05)
[2017-09-12] MEDS: calcium acetate 667mg (PhosLO) capsule PO SCH ×2 (13:00→20:51)
[2017-09-12 13:02] LABS: BASOPHILS % (AUTO) 0.4 % (0-1); EOSINOPHILS # (AUTO) 0.2 X10'3 (0-0.9); EOSINOPHILS % (AUTO) 3.1 % (0-6); HEMATOCRIT 33.6 % (42.0-52.0); LYMPHOCYTES # (AUTO) 0.5 X10'3 (1.1-4.8); LYMPHOCYTES % (AUTO) 10.4 % (21-51); MEAN CORPUSCULAR HGB CONC 32.7 % (33.0-36.5); MEAN CORPUSCULAR VOLUME 104.1 FL (78-98); MONOCYTES # (AUTO) 0.7 X10'3 (0-0.9); MONOCYTES % (AUTO) 14.5 % (2-12); NEUTROPHILS # (AUTO) 3.5 X10'3 (1.8-7.7); NEUTROPHILS % (AUTO) 71.6 % (42-75); PLATELET COUNT 201 X10'3 (140-440); RED BLOOD COUNT 3.23 X10'6 (4.70-6.10); RED CELL DISTRIBUTION WIDTH 18.6 % (11.5-14.5); WHITE BLOOD COUNT 4.9 X10'3 (4.5-11.0)
[2017-09-12 13:12] LABS: ANION GAP 12 (8-16); BLOOD UREA NITROGEN 41 MG/DL (7-18); CHLORIDE 100 MMOL/L (99-107); CREATININE 5.89 MG/DL (0.60-1.10); GLUCOSE 83 MG/DL (70-104); POTASSIUM 3.7 MMOL/L (3.5-5.1); SODIUM 140 MMOL/L (135-145); TOTAL CARBON DIOXIDE 28.3 MMOL/L (24-32)
[2017-09-12 13:13] LABS: ALBUMIN 2.9 G/DL (3.4-5.0); CALCIUM 9.2 MG/DL (8.5-10.1); eGFR 10 ML/MIN
[2017-09-12] MEDS: HYDROcodone/acetaminophen 10/325mg tab PO PRN ×2 (14:43→23:02)
[2017-09-12 15:00] VITALS: BP 114/71
[2017-09-12 18:00] VITALS: BP 100/68
[2017-09-12] MEDS: carVEDilol 12.5mg tablet PO SCH (20:51)
[2017-09-12] MEDS: amiodarone 200mg tablet PO SCH (20:51)
[2017-09-12] MEDS: sodium bicarbonate 650mg tablet PO SCH (20:52)
[2017-09-12 22:00] VITALS: BP 101/78
[2017-09-13] MEDS: pantoprazole 40MG/NS 100ML BAG 100 ML IV SCH ×3 (01:46→11:37)
[2017-09-13] MEDS: morphine 4 MG/ML inj SYRINge IV PRN ×4 (01:50→15:32)
[2017-09-13 02:00] VITALS: BP 101/69
[2017-09-13 05:54] LABS: BASOPHILS % (AUTO) 0.6 % (0-1); EOSINOPHILS # (AUTO) 0.2 X10'3 (0-0.9); EOSINOPHILS % (AUTO) 4.6 % (0-6); HEMATOCRIT 30.6 % (42.0-52.0); LYMPHOCYTES # (AUTO) 0.7 X10'3 (1.1-4.8); LYMPHOCYTES % (AUTO) 17.3 % (21-51); MEAN CORPUSCULAR HEMOGLOBIN 33.9 PG (27.0-31.0); MEAN CORPUSCULAR HGB CONC 32.6 % (33.0-36.5); MEAN CORPUSCULAR VOLUME 103.9 FL (78-98); MEAN PLATELET VOLUME 7.9 FL (7.4-10.4); MONOCYTES # (AUTO) 0.7 X10'3 (0-0.9); NEUTROPHILS # (AUTO) 2.6 X10'3 (1.8-7.7); NEUTROPHILS % (AUTO) 60.5 % (42-75); PLATELET COUNT 173 X10'3 (140-440); RED BLOOD COUNT 2.95 X10'6 (4.70-6.10); RED CELL DISTRIBUTION WIDTH 18.6 % (11.5-14.5); WHITE BLOOD COUNT 4.3 X10'3 (4.5-11.0)
[2017-09-13 06:00] VITALS: BP 111/72
[2017-09-13 06:42] LABS: ALBUMIN 2.6 G/DL (3.4-5.0); ANION GAP 10 (8-16); BLOOD UREA NITROGEN 21 MG/DL (7-18); BUN/CREATININE RATIO 5.6 (5.4-32.0); CALCIUM 8.4 MG/DL (8.5-10.1); CHLORIDE 103 MMOL/L (99-107); CREATININE 3.77 MG/DL (0.60-1.10); GLUCOSE 65 MG/DL (70-104); POTASSIUM 4.3 MMOL/L (3.5-5.1); SODIUM 139 MMOL/L (135-145); TOTAL CARBON DIOXIDE 26.3 MMOL/L (24-32); eGFR 16 ML/MIN
[2017-09-13] MEDS: HYDROcodone/acetaminophen 10/325mg tab PO PRN ×4 (06:56→21:15)
[2017-09-13] MEDS: venlafaxine XR 75mg capsule (Q24H) PO SCH (07:21)
[2017-09-13] MEDS: atorvastatin 20mg tablet PO SCH (07:21)
[2017-09-13] MEDS: sodium bicarbonate 650mg tablet PO SCH ×2 (07:21→20:58)
[2017-09-13] MEDS: diltiazem CD 120mg capsule (once-daily) PO SCH (07:21)
[2017-09-13] MEDS: tamsulosin 0.4mg capsule PO SCH (07:21)
[2017-09-13] MEDS: calcium acetate 667mg (PhosLO) capsule PO SCH ×3 (07:22→20:57)
[2017-09-13] MEDS: amiodarone 200mg tablet PO SCH ×2 (07:22→20:57)
[2017-09-13] MEDS: allopurinol 100mg tablet PO SCH (07:22)
[2017-09-13] MEDS: carVEDilol 12.5mg tablet PO SCH ×2 (07:22→20:57)
[2017-09-13] MEDS ORDERED: diltiazem CD 120mg capsule (once-daily) PO SCH (08:00)
[2017-09-13 08:15] LABS: ANISOCYTOSIS 2+; HYPOCHROMASIA 1+; PLATELET ESTIMATE NORMAL; POIKILOCYTOSIS 1+; POLYCHROMASIA 1+
[2017-09-13] MEDS: fluticasone/vilanterol 200mcg/25mcg inhaler IH SCH (09:13)
[2017-09-13] MEDS ORDERED: HYDROmorphone 2mg/ml vial IV PRN (09:35)
[2017-09-13] MEDS ORDERED: HYDROmorphone inj. 0.5 MG/0.5 ML DISP.SYRIN IV PRN (09:38)
[2017-09-13] MEDS: albuterol 2.5 MG/3 ML nebule NEB PRN (09:44)
[2017-09-13 11:00] VITALS: BP 102/70
[2017-09-13 15:00] VITALS: BP 106/68
[2017-09-13 18:00] VITALS: BP 105/69
[2017-09-13] MEDS: pantoprazole 40 MG vial IV SCH (20:57)
[2017-09-13 22:00] VITALS: BP 110/65
[2017-09-13] MEDS ORDERED: zolpidem 5mg tablet PO PRN (22:10)
[2017-09-14 02:00] VITALS: BP 110/75
[2017-09-14 06:00] VITALS: BP 105/58
[2017-09-14 06:02] LABS: BASOPHILS % (AUTO) 0.6 % (0-1); EOSINOPHILS # (AUTO) 0.3 X10'3 (0-0.9); EOSINOPHILS % (AUTO) 4.7 % (0-6); HEMATOCRIT 30.4 % (42.0-52.0); LYMPHOCYTES # (AUTO) 0.8 X10'3 (1.1-4.8); LYMPHOCYTES % (AUTO) 14.3 % (21-51); MEAN CORPUSCULAR HEMOGLOBIN 34.2 PG (27.0-31.0); MEAN CORPUSCULAR HGB CONC 32.9 % (33.0-36.5); MEAN PLATELET VOLUME 8.4 FL (7.4-10.4); MONOCYTES # (AUTO) 0.7 X10'3 (0-0.9); MONOCYTES % (AUTO) 12.8 % (2-12); NEUTROPHILS # (AUTO) 3.7 X10'3 (1.8-7.7); NEUTROPHILS % (AUTO) 67.6 % (42-75); PLATELET COUNT 193 X10'3 (140-440); RED BLOOD COUNT 2.92 X10'6 (4.70-6.10); RED CELL DISTRIBUTION WIDTH 17.8 % (11.5-14.5); WHITE BLOOD COUNT 5.5 X10'3 (4.5-11.0)
[2017-09-14 06:17] LABS: ALBUMIN 2.9 G/DL (3.4-5.0); ANION GAP 13 (8-16); BLOOD UREA NITROGEN 31 MG/DL (7-18); BUN/CREATININE RATIO 5.7 (5.4-32.0); CALCIUM 8.6 MG/DL (8.5-10.1); CHLORIDE 97 MMOL/L (99-107); GLUCOSE 97 MG/DL (70-104); POTASSIUM 4.5 MMOL/L (3.5-5.1); SODIUM 135 MMOL/L (135-145); TOTAL CARBON DIOXIDE 25.2 MMOL/L (24-32); eGFR 11 ML/MIN
[2017-09-14] MEDS: fluticasone/vilanterol 200mcg/25mcg inhaler IH SCH (08:00)
[2017-09-14] MEDS: calcium acetate 667mg (PhosLO) capsule PO SCH ×2 (08:10→12:19)
[2017-09-14] MEDS: HYDROcodone/acetaminophen 10/325mg tab PO PRN (08:17)
[2017-09-14] MEDS: pantoprazole 40 MG vial IV SCH (08:19)
[2017-09-14] MEDS: diltiazem CD 120mg capsule (once-daily) PO SCH (08:21)
[2017-09-14] MEDS: amiodarone 200mg tablet PO SCH (08:22)
[2017-09-14] MEDS: venlafaxine XR 75mg capsule (Q24H) PO SCH (08:23)
[2017-09-14] MEDS: carVEDilol 12.5mg tablet PO SCH (08:23)
[2017-09-14] MEDS: atorvastatin 20mg tablet PO SCH (08:24)
[2017-09-14] MEDS: tamsulosin 0.4mg capsule PO SCH (08:24)
[2017-09-14] MEDS: allopurinol 100mg tablet PO SCH (08:25)
[2017-09-14] MEDS: sodium bicarbonate 650mg tablet PO SCH (08:27)
[2017-09-14] MEDS: albuterol 2.5 MG/3 ML nebule NEB PRN (09:09)
[2017-09-14 11:00] VITALS: BP 103/67
[2017-09-14 15:00] VITALS: BP 93/59
[2017-09-14 15:10] VITALS: BP 106/60
== END 2017-09-14 16:04 | disposition home or self-care (01) | DRG 377 ==
LOC: ER 17:25 → ED HOLD 22:06 → PCU 3S 22:54
PROVIDERS: ADMIT Internal Medicine; ATTEND Internal Medicine Critical Care Medicine
PROC: 0D9670Z Drainage of Stomach with Drainage Device, Via Natural or Artificial Opening (ICD-10-PCS; 2017-09-11)
PROC: 5A1D70Z Performance of Urinary Filtration, Intermittent, Less than 6 Hours Per Day (ICD-10-PCS; principal; 2017-09-12)
DX: K29.01 Acute gastritis with bleeding (principal); N18.6 End stage renal disease; K56.609 Unspecified intestinal obstruction, unspecified as to partial versus complete obstruction; I12.0 Hypertensive chronic kidney disease with stage 5 chronic kidney disease or end stage renal disease; I48.91 Unspecified atrial fibrillation; I25.10 Atherosclerotic heart disease of native coronary artery without angina pectoris; D64.9 Anemia, unspecified; J44.9 Chronic obstructive pulmonary disease, unspecified; Z99.2 Dependence on renal dialysis; Z93.3 Colostomy status; I25.2 Old myocardial infarction; Z88.8 Allergy status to other drugs, medicaments and biological substances; Z79.01 Long term (current) use of anticoagulants; Z79.899 Other long term (current) drug therapy; Z85.038 Personal history of other malignant neoplasm of large intestine
CPT/HCPCS: 36415; 71045; 74176; 80048; 80053; 83605; 85025; 85610; 85730; 86885; 86900; 86901; 87040; 87070; 93005; 93990; 94640; 94760; 96374; 96375; 99285; C9113; G0257; J0780; J1170; J1644; J2270; J3010; J7030

== ENCOUNTER 2017-09-16 08:58 | Emergency (ER) | payer MEDICARE, MEDICAID ==
[~2017-09-16] VITALS: Ht 5703.2 cm; Wt 66.4 kg
[~2017-09-16 08:58] MED LIST changes: -APIX2.5T PO
[2017-09-16 09:37] LABS: CLARITY,URINE CLEAR (Clear); COLOR,URINE YELLOW (Yellow); GLUCOSE, URINE NEGATIVE (Neg); KETONES,URINE NEGATIVE (Neg); LEUKOCYTE ESTERASE ,URINE NEGATIVE (Neg); NITRITES, URINE NEGATIVE (Neg); OCCULT BLOOD,URINE NEGATIVE (Neg); PH,URINE 8.5 (4.8-8.0); PROTEIN,URINE 100 mg/dl (Neg); UROBILINOGEN,URINE 0.2 E.U/dL (0.2-1.0)
[2017-09-16 09:41] LABS: UA COLLECTION TYPE CLN CATCH MIDSTREAM
[2017-09-16 09:44] LABS: MUCUS STRANDS FEW /LPF (Neg); SQUAMOUS EPITHELIAL CELL,UR FEW /LPF (FEW)
[2017-09-16] MEDS ORDERED: ondansetron/PF 4mg/2ml inj IV ONE (09:45)
[2017-09-16] MEDS ORDERED: morphine 4 MG/ML inj SYRINge IV ONE (09:45)
[2017-09-16 09:46] LABS: BACTERIA,URINE NONE SEEN /HPF (Neg); RBC,URINE 0-2 /HPF (0-2); RENAL CELLS, URINE FEW /HPF; TRANSITIONAL EPI CELLS,URINE FEW /HPF; WBC,URINE 0-4 /HPF (0-4)
[2017-09-16] MEDS ORDERED: APIX2.5T PO (09:47)
[2017-09-16] MEDS ORDERED: FOLI0.8T7 PO (09:47)
[2017-09-16] MEDS ORDERED: CINA30TA2 PO (09:47)
[2017-09-16] MEDS ORDERED: PRAM0.253 PO (09:47)
[2017-09-16 09:49] LABS: BASOPHILS % (AUTO) 0.3 % (0-1); EOSINOPHILS # (AUTO) 0.1 X10'3 (0-0.9); EOSINOPHILS % (AUTO) 1.9 % (0-6); HEMOGLOBIN 10.7 g/dl (14.0-17.9); LYMPHOCYTES # (AUTO) 0.5 X10'3 (1.1-4.8); LYMPHOCYTES % (AUTO) 10.1 % (21-51); MEAN CORPUSCULAR HGB CONC 32.4 % (33.0-36.5); MEAN CORPUSCULAR VOLUME 104.8 FL (78-98); MEAN PLATELET VOLUME 8.1 FL (7.4-10.4); MONOCYTES # (AUTO) 0.8 X10'3 (0-0.9); MONOCYTES % (AUTO) 16.4 % (2-12); NEUTROPHILS # (AUTO) 3.4 X10'3 (1.8-7.7); NEUTROPHILS % (AUTO) 71.3 % (42-75); PLATELET COUNT 204 X10'3 (140-440); RED BLOOD COUNT 3.15 X10'6 (4.70-6.10); RED CELL DISTRIBUTION WIDTH 18.1 % (11.5-14.5); WHITE BLOOD COUNT 4.7 X10'3 (4.5-11.0)
[2017-09-16 09:54] LABS: INR 1.3 INR; PROTHROMBIN TIME 13.4 SECONDS (9.0-12.0)
[2017-09-16 09:55] LABS: ALANINE AMINOTRANSFERASE 15 U/L (12-78); ALBUMIN 2.7 G/DL (3.4-5.0); ALBUMIN/GLOBULIN RATIO 0.8 (1.1-1.5); ALKALINE PHOSPHATASE 137 IU/L (46-116); ANION GAP 11 (8-16); ASPARTATE AMINO TRANSFERASE 17 U/L (10-37); BILIRUBIN,TOTAL 0.7 MG/DL (0.1-1.0); BLOOD UREA NITROGEN 35 MG/DL (7-18); BUN/CREATININE RATIO 7.2 (5.4-32.0); CALCIUM 8.3 MG/DL (8.5-10.1); CHLORIDE 98 MMOL/L (99-107); CREATININE 4.86 MG/DL (0.60-1.10); GLUCOSE 96 MG/DL (70-104); POTASSIUM 4.2 MMOL/L (3.5-5.1); SODIUM 138 MMOL/L (135-145); TOTAL CARBON DIOXIDE 29.2 MMOL/L (24-32); TOTAL PROTEIN 5.9 G/DL (6.4-8.2); eGFR 12 ML/MIN
[2017-09-16 10:29] LABS: BANDS% (MANUAL) 17 % (0-10); BASOPHILS % (MANUAL) 1 % (0-1); MONOCYTES % (MANUAL) 10 % (2-12)
[2017-09-16 10:30] LABS: ANISOCYTOSIS 2+; LARGE PLATELETS FEW; NUCLEATED RED BLOOD CELLS 1 /100WBC (0-0); PLATELET ESTIMATE NORMAL; POLYCHROMASIA 1+; TOXIC GRANULATION 1+
[2017-09-16 10:31] LABS: TOXIC VACUOLATION FEW
[2017-09-16 11:21] VITALS: BP 94/66
[2017-09-16 14:46] LABS: LYMPHOCYTES % (MANUAL) 11 % (21-51); NEUTROPHILS % (MANUAL) 60 % (42-75)
[2017-09-16 14:47] LABS: EOSINOPHILS % (MANUAL) 1 % (0-6); TARGET CELLS FEW
[2017-09-16 14:48] LABS: TOTAL CELLS COUNTED 100
== END 2017-09-16 11:24 | disposition home or self-care (01) ==
LOC: ER 08:58
DX: R10.84 Generalized abdominal pain (principal); R11.0 Nausea; I25.10 Atherosclerotic heart disease of native coronary artery without angina pectoris; I12.9 Hypertensive chronic kidney disease with stage 1 through stage 4 chronic kidney disease, or unspecified chronic kidney disease; N18.9 Chronic kidney disease, unspecified; J44.9 Chronic obstructive pulmonary disease, unspecified; I48.91 Unspecified atrial fibrillation; I25.2 Old myocardial infarction; Z99.2 Dependence on renal dialysis; Z98.61 Coronary angioplasty status; Z90.49 Acquired absence of other specified parts of digestive tract; Z88.1 Allergy status to other antibiotic agents; Z88.6 Allergy status to analgesic agent; Z79.899 Other long term (current) drug therapy
CPT/HCPCS: 36415; 80053; 81001; 85025; 85610; 96374; 96375; 99284; J2270; J2405

== ENCOUNTER 2018-03-27 06:20 | Day surgery (SDC) | payer MEDICARE, MEDICAID ==
[~2018-03-27] VITALS: Ht 172.7 cm; Wt 74.3 kg
[2018-03-27] VITALS (7 sets, daily range): BP systolic 118–148; BP diastolic 81–92
[~2018-03-27 06:20] MED LIST changes: +AMIO200T40 PO; -AMIO200T57 PO; +APIX2.5T PO; +CINA30TA2 PO; +FOLI0.8T7 PO; +HYDR-4353 PO; -HYDR-565 PO; +PRAM0.253 PO
[2018-03-27] MEDS ORDERED: normal saline 1000ml 1,000 ML IV SCH ×2 (06:55→09:04)
[2018-03-27] MEDS ORDERED: PANT-47 PO (06:58)
[2018-03-27 07:36] LABS: BASOPHILS % (AUTO) 0.8 % (0-1); EOSINOPHILS # (AUTO) 0.3 X10'3 (0-0.9); EOSINOPHILS % (AUTO) 5.7 % (0-6); HEMATOCRIT 34.4 % (42.0-52.0); LYMPHOCYTES # (AUTO) 0.7 X10'3 (1.1-4.8); LYMPHOCYTES % (AUTO) 12.2 % (21-51); MEAN CORPUSCULAR HEMOGLOBIN 32.3 PG (27.0-31.0); MEAN PLATELET VOLUME 7.5 FL (7.4-10.4); MONOCYTES # (AUTO) 0.7 X10'3 (0-0.9); MONOCYTES % (AUTO) 12.5 % (2-12); NEUTROPHILS # (AUTO) 3.9 X10'3 (1.8-7.7); NEUTROPHILS % (AUTO) 68.8 % (42-75); PLATELET COUNT 303 X10'3 (140-440); RED CELL DISTRIBUTION WIDTH 19.2 % (11.5-14.5); WHITE BLOOD COUNT 5.7 X10'3 (4.5-11.0)
[2018-03-27 07:48] LABS: ALBUMIN 3.4 G/DL (3.4-5.0); ANION GAP 13 (8-16); BLOOD UREA NITROGEN 47 MG/DL (7-18); BUN/CREATININE RATIO 6.7 (5.4-32.0); CALCIUM 9.7 MG/DL (8.5-10.1); CHLORIDE 98 MMOL/L (99-107); CREATININE 7.05 MG/DL (0.60-1.10); GLUCOSE 84 MG/DL (70-104); POTASSIUM 4.9 MMOL/L (3.5-5.1); SODIUM 140 MMOL/L (135-145); TOTAL CARBON DIOXIDE 29.5 MMOL/L (24-32); eGFR 8 ML/MIN
[2018-03-27] MEDS ORDERED: CARV-50 PO (08:08)
[2018-03-27] MEDS ORDERED: DILT120C62 PO (08:10)
[2018-03-27] MEDS ORDERED: midazolam 2 mg/2 ml injection IV PRN (09:05)
[2018-03-27] MEDS ORDERED: fentaNYL/PF 50MCG/1 ML 2ML syringe IV PRN (09:05)
[2018-03-27] MEDS ORDERED: LIDOcaine 1% (10mg/ml) 2ml vial ONE (09:16)
[2018-03-27] MEDS ORDERED: heparin 1,000 UNITS/NS 500ml 500 ML ONE (09:17)
[2018-03-27] MEDS ORDERED: midazolam 2 mg/2 ml injection ONE (09:17)
[2018-03-27] MEDS ORDERED: fentaNYL/PF 50MCG/1 ML 2ML syringe ONE ×2 (09:17→10:01)
[2018-03-27] MEDS ORDERED: iohexol 300mg/ml 100ml inj. ONE (09:30)
== END 2018-03-27 12:40 | disposition home or self-care (01) ==
LOC: SSTAY O 06:20
PROVIDERS: ATTEND Radiology Diagnostic Radiology
DX: T82.858A Stenosis of other vascular prosthetic devices, implants and grafts, initial encounter (principal); Y83.9 Surgical procedure, unspecified as the cause of abnormal reaction of the patient, or of later complication, without mention of misadventure at the time of the procedure; Y92.9 Unspecified place or not applicable; I25.10 Atherosclerotic heart disease of native coronary artery without angina pectoris; I12.0 Hypertensive chronic kidney disease with stage 5 chronic kidney disease or end stage renal disease; N18.6 End stage renal disease; F32.9 Major depressive disorder, single episode, unspecified; Z88.8 Allergy status to other drugs, medicaments and biological substances; Z79.899 Other long term (current) drug therapy; Z98.890 Other specified postprocedural states
CPT/HCPCS: 36415; 36902; 76937; 80048; 85025; 99152; 99153; J1644; J2250; J3010; J3490; Q9967; 36561; 77001; C1725; C1769; C1894